=== PATIENT | female | born 1985 | race Caucasian/White ===

== ENCOUNTER 2019-01-08 15:53 | Inpatient (IN) ==
--- OUTSIDE RECORDS SUMMARY | 2019-01-08 15:56 | External Medical Summary | Continuity of Care Document ---
:1985 Author Name Linda Palma Address Unavailable Unavailable , Care Team Providers Name Role Phone Unavailable Unavailable Unavailable PCP, UNKNOWN Unavailable Unavailable Problems Active medical history not documented Allergies and Adverse Reactions Allergy history not documented Medications Medications not documented Procedures Procedures not documented Immunizations Immunizations not documented Plan of Treatment Planned Observations Planned Goals not documented Results No Known Results Results not documented
[2019-01-08] MEDS ORDERED: PENICILLIN G POTASSIUM 6 MU in DEXTROSE 5% 250 ML IV STA (16:07)
[2019-01-08] MEDS ORDERED: LACTATED RINGER'S 1,000 ML IV PRN ×2 (16:07→21:17)
[2019-01-08] MEDS ORDERED: OXYTOCIN 30 UNITS/500 ML BAG IV PRN ×3 (16:07→23:13)
[2019-01-08] MEDS ORDERED: PENICILLIN G POTASSIUM 3 MU in DEXTROSE 5% 100 ML IV PRN (16:07)
--- NOTE | 2019-01-08 16:14 | History & Physical Report ---
Date of Service January 08, 2019 Assessment & Plan (1) Uterine contractions at greater than 20 weeks of gestation: 33 yo at 40 wks, ctxs, cervical change GBS+ Declines pain management / epidural Plan admit, labs, PCN, IVF Anticipate History of Present Illness Chief Complaint: contractions Primary Care Provider: NO PCP Patient is a 33 yo at 40 wks, feeling ctxs since this morning, got closer and regular for the last 2 hours No OF/VB +FM Her cervix was 3/ 70%/ -3, yesterday in office Her has been complicated by 1) h/o TPTL, FFN+, s/p steroid series 2) GBS+ 3) Rh neg: s/p Rhogam Allergies Allergy/AdvReac Type Severity Reaction Status Date / Time No Known Allergies Allergy Verified 10/20/02 15:42 [id number] Allergy Unknown Uncoded 10/20/02 16:20 MSG Allergy Unknown Uncoded 10/20/02 16:20 N Allergy Unknown Uncoded 10/20/02 16:20 U Allergy Unknown Uncoded 10/20/02 16:20 Patient History Social History marital status: Feels Safe at Home: Yes Smoking Status: Never smoker Hx Alcohol Use: No Hx Substance Use: No OB History FT in 2016 [employer] History Denies any h/o STD's Review of Systems All systems reviewed & are unremarkable except as noted in HPI & below Physical Exam Constitutional: WD/WN, vitals as above well developed and well nourished Smiling Genitourinary: no vaginal lesions, no adnexal mass normal external appearance Cervix 5/ 80%/-2, tight bag Results & Data Vital Signs (Past 12 Hours) Vital Signs Pulse BP 01/08/19 16:00 70 113/64 Monitoring External Monitor 150's moderate varibilyt, 1 mild decel after 1 ctxs, accel+ Tocodynamometer ctxs q 8 min
[2019-01-08] MEDS: LACTATED RINGER'S 1,000 ML IV SCH ×2 (16:21→19:11)
[2019-01-08 16:36] LABS: Hematocrit (blood only) 37.4 % (37-47); Hemoglobin 12.9 g/dL (12.0-16.0); Mean Platelet Volume 10.9 fL (7.4-10.4); Platelet Count 213 K/uL (130-400); RDW Coefficient of Variation 12.6 % (11.5-14.5); RDW Standard Deviation 41.9 fL (36.4-46.3); Red Blood Count 4.11 M/uL (4.2-5.4); White Blood Count 6.66 K/uL (4.8-10.8)
[2019-01-08 17:08] LABS: Mean Corpuscular Hgb Conc 34.5 g/dL (32-36)
--- NOTE | 2019-01-08 21:22 | Obstetrical Progress Note ---
Date of Service January 08, 2019 Subjective Patient is reevaluated She has been waling, no ctxs in bed, feels when she walks She seems comfortable and smiling 2nd dose of PCN was given VE: 6/ 80%/ -2, recommended AROM, after long discussion and answered her questions, she agreed for AROM AROM'ed, no fluid came Bed side US is done: vertex, placenta anterior, FHR 140's, FM's seen, MARGARITO 5.5 cm FHR categ I, occasional variable decels, otherwise good accels and moderate variability [place]: 2-3 ctxs in 1 hour Protracted labor Recommended low dose pitocin, she has multiple questions, but agreed All questions were answered Results & Data Vital Signs (Past 12 Hours) Vital Signs Temp Pulse Resp BP 01/08/19 19:03 76 112/57 L 01/08/19 16:00 36.7 C 70 18 113/64
--- NOTE | 2019-01-08 21:40 | Obstetrical Progress Note ---
Date of Service January 08, 2019 Subjective Now she declined pitocin She likes await for her own ctxs to come FHR categ I Continue to monitor Results & Data Vital Signs (Past 12 Hours) Vital Signs Temp Pulse Resp BP 01/08/19 19:03 76 112/57 L 01/08/19 16:00 36.7 C 70 18 113/64
[2019-01-08] MEDS ORDERED: BENZOCAINE 20% AER SPR 82.5 GM CAN EXT PRN (23:13)
[2019-01-08] MEDS ORDERED: DIPHTHERIA/TETANUS/PERTUSSIS 0.5 ML SYR/VIAL IM ONE (23:13)
[2019-01-08] MEDS ORDERED: BISACODYL 10 MG SUPP PR PRN (23:13)
[2019-01-08] MEDS ORDERED: SUPERCREAM 0.870% 15 GM JAR EXT PRN (23:13)
[2019-01-08] MEDS ORDERED: HYDROCORTISONE ACETATE 25 MG SUPP PR PRN (23:13)
[2019-01-08] MEDS ORDERED: IBUPROFEN 600 MG TAB PO ONE (23:20)
--- NOTE | 2019-01-09 01:45 | Delivery Summary ---
DATE OF OPERATION: 01/08/2019 DATE OF DELIVERY: 01/08/2019 TIME OF DELIVERY: 2258 p.m. TIME OF DELIVERY OF PLACENTA: 23:05 p.m. DETAILS OF DELIVERY: The patient was found to be fully dilated and desired to push. She pushed through 3 contractions and delivered the head without difficulty. Shoulders were delivered with minimal traction. Baby was handed to the mother where mouth and nose were suctioned. Cord was clamped x2 and cut. It was a 3-vessel cord. Cord blood was obtained and then per patient request, cord blood was collected in its bag for saving. The placenta was found to be in the vagina, delivered spontaneous as intact and complete. Uterus was explored, found to be empty. Lower segment was cleared of all clots and debris. Fundus was firm. EBL was 100 mL. The vagina and perineum were checked for lacerations. There was a very small first degree periclitoral laceration which was not bleeding. After discussion with the patient, opted not to repair due to having no epidural and sensitive in the area. The rest of the vagina and perineum were intact. Mom and baby tolerated the procedure well. Sponge, lap, needle count was correct x2. Baby was a viable male infant, Apgars 8/9, weight is 3618 gr. No complications happened and I was present during whole procedure. I attest to the content of the Intraoperative Record and any orders documented therein. Any exceptions are noted below. MTDD
[2019-01-09] MEDS: ACETAMINOPHEN 325 MG TAB PO PRN ×3 (02:31→15:42)
[2019-01-09] MEDS: IBUPROFEN 600 MG TAB PO PRN ×5 (03:24→23:02)
[2019-01-09 06:20] LABS: Hematocrit (blood only) 35.1 % (37-47); Hemoglobin 12.1 g/dL (12.0-16.0); Mean Corpuscular Hgb Conc 34.5 g/dL (32-36); Mean Corpuscular Volume 90.9 fL (80-100); Mean Platelet Volume 10.9 fL (7.4-10.4); Platelet Count 188 K/uL (130-400); RDW Coefficient of Variation 12.6 % (11.5-14.5); RDW Standard Deviation 41.9 fL (36.4-46.3); Red Blood Count 3.86 M/uL (4.2-5.4); White Blood Count 11.63 K/uL (4.8-10.8)
--- NOTE | 2019-01-09 08:43 | Obstetrical Progress Note ---
Date of Service January 09, 2019 Subjective Patient is seen and examined. She feels well, no complaints. Ambulating without dizziness Voiding without difficulty Tolerating regular diet with out N&V Bleeding is minimal No fever/ chills/ CP/ SOB/ N&V/ Leg pain breast feeding without problems Vital Signs Temp Pulse Pulse Resp BP BP Pulse Ox 01/09/19 03:10 36.9 C 76 18 98/61 L 98 01/09/19 01:25 36.8 C 91 H 18 114/70 95 01/09/19 01:10 36.6 C 82 18 119/57 L 01/09/19 00:55 75 116/59 L 01/09/19 00:42 75 18 139/56 L 01/09/19 00:25 69 118/58 L 01/09/19 00:10 79 18 122/60 01/08/19 23:58 78 18 129/74 01/08/19 23:40 82 16 110/59 L 01/08/19 23:25 85 119/55 L 01/08/19 23:10 36.8 C 78 16 117/61 01/08/19 22:24 65 98/57 L 01/08/19 21:20 36.8 C 18 01/09/19 01/08/19 Range/Units 05:59 16:17 WBC 11.63 H 6.66 (4.8-10.8) K/uL RBC 3.86 L 4.11 L (4.2-5.4) M/uL Hgb 12.1 12.9 (12.0-16.0) g/dL Hct 35.1 L 37.4 (37-47) % MCV 90.9 91.0 (80-100) fL MCH 31.3 31.4 (25-34) pg MCHC 34.5 34.5 (32-36) g/dL RDW Std Deviation 41.9 41.9 (36.4-46.3) fL RDW Coeff of Guilherme 12.6 12.6 (11.5-14.5) % Plt Count 188 213 (130-400) K/uL MPV 10.9 H 10.9 H (7.4-10.4) fL PE: General: Alert, orientedx3, NAD Abd: soft, NT, fundus firm, below Umbilicus Perineum intact, Lochia rubra minimal Ext; NT, no edema AP: 33 yo s/p , ppd# 1 VSS Afebrile doing well Continue routine care All questions were answered D/C home tomorrow Results & Data Vital Signs (Past 12 Hours) Vital Signs Temp Pulse Pulse Resp BP BP Pulse Ox 01/09/19 03:10 36.9 C 76 18 98/61 L 98 01/09/19 01:25 36.8 C 91 H 18 114/70 95 01/09/19 01:10 36.6 C 82 18 119/57 L 01/09/19 00:55 75 116/59 L 01/09/19 00:42 75 18 139/56 L 01/09/19 00:25 69 118/58 L 01/09/19 00:10 79 18 122/60 01/08/19 23:58 78 18 129/74 01/08/19 23:40 82 16 110/59 L 01/08/19 23:25 85 119/55 L 01/08/19 23:10 36.8 C 78 16 117/61 01/08/19 22:24 65 98/57 L 01/08/19 21:20 36.8 C 18
[2019-01-09] MEDS: PRENATAL VITAMIN 1 TAB PO SCH (09:22)
[2019-01-09] MEDS: DOCUSATE SODIUM 100 MG CAP PO SCH ×2 (09:23→19:56)
[2019-01-09] MEDS: FERROUS SULFATE 325 MG TAB PO SCH (09:23)
[2019-01-09] MEDS ORDERED: BISACODYL 5 MG TABEC PO SCH (20:00)
[2019-01-10] MEDS: IBUPROFEN 600 MG TAB PO PRN ×3 (03:22→19:26)
[2019-01-10 06:02] LABS: Hematocrit (blood only) 36.6 % (37-47); Hemoglobin 12.6 g/dL (12.0-16.0)
[2019-01-10] MEDS: FERROUS SULFATE 325 MG TAB PO SCH (07:48)
[2019-01-10] MEDS: DOCUSATE SODIUM 100 MG CAP PO SCH (07:48)
[2019-01-10] MEDS: PRENATAL VITAMIN 1 TAB PO SCH (07:48)
[2019-01-10] MEDS: ACETAMINOPHEN 325 MG TAB PO PRN (07:48)
--- NOTE | 2019-01-10 07:57 | Obstetrical Progress Note ---
Date of Service January 10, 2019 Subjective doing well out of bed passing gas tolerating diet well Physical Exam Constitutional: WD/WN, vitals as above comfortable abdomen soft fundus firm no edema neg Fan's tent d/c in AM
== END 2019-01-10 22:20 | disposition home or self-care (01) | DRG 807 ==
LOC: OPB 15:53 → 4S1 15:54 → 4S2 01-09 01:25

== ENCOUNTER 2022-04-26 05:13 | Inpatient (IN) ==
[2022-04-26] MEDS ORDERED: LACTATED RINGER'S 1,000 ML IV PRN (06:23)
[2022-04-26] MEDS ORDERED: OXYTOCIN 30 UNITS/500 ML BAG IV PRN ×3 (06:23→12:51)
[2022-04-26 06:58] LABS: Hematocrit (blood only) 36.6 % (34.1-44.9); Hemoglobin 12.2 g/dl (12.0-16.0); Mean Corpuscular Hemoglobin 30.7 pg (25.0-34.0); Mean Corpuscular Hgb Conc 33.3 g/dL (32.0-36.0); Mean Platelet Volume 10.9 fL (9.4-12.3); Platelet Count 222 K/uL (130-400); RDW Coefficient of Variation 12.8 % (11.5-14.5); RDW Standard Deviation 43.3 fL (36.4-46.3); Red Blood Count 3.98 M/uL (3.93-5.22)
[2022-04-26] MEDS ORDERED: BUTORPHANOL TARTRATE 1 MG/ML VIAL IV PRN (08:54)
--- NOTE | 2022-04-26 09:19 | History & Physical Report ---
Date of Service April 26, 2022 Assessment & Plan (1) Premature rupture of membranes: Plan: 36-year-old -0-0-2 at 38 weeks and 3 days of gestation presenting with spontaneous/premature rupture of membranes, not in labor, Vital signs stable afebrile, heart rate reassuring, GBS negative, Discussed recommendation of induction of labor with SROM at term, patient agrees with Pitocin, and continuous monitoring, see HPI All questions were answered. (2) Spontaneous rupture of amniotic membranes: Admission and Anticipated Discharge Date Admission Date: April 26, 2022 History of Present Illness Primary Care Provider: Angel Bradley MD Patient is a 36-year-old -0-0-2 at 38 weeks and 3 days of gestation who presented to labor and delivery this morning after spontaneous rupture of membranes at around 3 AM. She has been leaking clear fluid since then. Mild irregular contractions, they are not painful. No vaginal bleeding, no fever chills, no abdominal pain. Patient feels good movements. Her has been uncomplicated GBS negative She has been walking since she came and she feels more contractions when she ambulates. She was hoping expectant management with ambulation. Her cervix was 3 cm at admission when she was checked by her nurse. I checked her again and her cervix is same 3 cm dilated, 60% effaced, posterior, head is at -2 station. We discussed premature/spontaneous rupture of membranes and not being in active labor, prolonged labor with increased risk of intraamniotic infection which can affect her and the baby. Discussed induction of labor with low-dose Pitocin per protocol, patient has multiple questions about Pitocin and other options. We also discussed oral Cytotec. After long discussion patient decided to ambulate for half an hour and then come back and start Pitocin. she wants to stand and sit on the ball while on Pitocin and baby will be monitored. Allergies Allergy/AdvReac Type Severity Reaction Status Date / Time No Known Allergies Allergy Verified 07/20/20 22:44 Home Medications Medication Instructions Recorded Confirmed Type vit no.133-ferrous 1 tab PO DAILY 07/20/20 04/26/22 History fumarate 28 mg-folic acid 800 mcg tablet () Patient History Medical History Migraines Surgical History [place] teeth extracted Social History Smoking Status: Never smoker Hx Alcohol Use: No Hx Substance Use: No Preferred Language: Maldivian Communication Ability: Effective [employer] Required: No Beliefs That Will Affect Care: Anabaptism marital status: Current Living Situation: Spouse and Family Current Living Situation Comment: Spouse and 2 sons. Other Information That Helps Us Care for You: No Feels Safe at Home: Yes Safety Concerns: Feels Safe At This Time Assistive Devices: None OB History Full-term 's in 2019 and 2016 [employer] History History of genital herpes, chlamydia, gonorrhea Review of Systems as per Subjective / HPI Physical Exam Constitutional: WD/WN, vitals as above well developed, well nourished and comfortable (not in pain,) Genitourinary: normal external appearance OB Exam Abdomen: + vertex Manual OB Exam: + cervical dilation 3 cm, + cervical effacement 60%, + station - 2 and + amniotic fluid (Grossly leaking clear amniotic fluid) OB Exam Monitor Tracing: + external uterine monitor used and + category I Results & Data ([facility]) Vital Signs (Past 12 Hours) Vital Signs Temp Pulse Resp BP 04/26/22 09:00 79 101/58 L 04/26/22 07:49 36.7 C 04/26/22 07:50 73 103/60 04/26/22 05:31 18 04/26/22 05:31 36.8 C 18 04/26/22 05:33 72 108/60 04/26/22 05:28 36.8 C 18 Diagnostic Findings Lab Results 04/26/22 Range/Units 06:45 WBC 6.40 (4.8-10.8) K/ul RBC 3.98 (3.93-5.22) M/uL Hgb 12.2 (12.0-16.0) g/dl Hct 36.6 (34.1-44.9) % MCV 92.0 (80.0-100.0) fL MCH 30.7 (25.0-34.0) pg MCHC 33.3 (32.0-36.0) g/dL RDW Std Deviation 43.3 (36.4-46.3) fL RDW Coeff of Guilherme 12.8 (11.5-14.5) % Plt Count 222 (130-400) K/uL MPV 10.9 (9.4-12.3) fL Code Status & VTE Plan VTE Prophylaxis Plan VTE Prophylaxis will be ordered: No
[2022-04-26 12:09] LABS: Glucose Fasting 67 mg/dl (70-99); LDL Cholesterol Direct 73 mg/dl
[2022-04-26] MEDS ORDERED: bisacodyL 10 MG SUPP PR PRN (12:51)
[2022-04-26] MEDS ORDERED: HYDROCORTISONE ACETATE 25 MG SUPP PR PRN (12:51)
[2022-04-26] MEDS ORDERED: MEASLES, MUMPS & RUBELLA VIRUS VIAL SQ ONE (12:51)
[2022-04-26] MEDS ORDERED: DIPHTHERIA/TETANUS/PERTUSSIS 0.5 ML SYR/VIAL IM ONE (12:51)
[2022-04-26] MEDS ORDERED: BENZOCAINE 20% AER SPR 82.5 GM CAN EXT PRN (12:51)
[2022-04-26] MEDS ORDERED: ACETAMINOPHEN 325 MG TAB PO PRN (12:51)
--- NOTE | 2022-04-26 12:55 | Delivery Summary ---
Vaginal Delivery Summary Date of Service April 26, 2022 Vaginal Delivery Summary Patient was found to be fluid dilated and desired to push. Head was over the perineum and with the same push it was delivered without difficulty and the anterior shoulder was unable to be delivered by manual traction. Posterior/right hand was bulging on the perineum, it was delivered with the right arm and shoulder and then the other shoulder and the rest of the body was delivered without difficulty. Baby was handed off to the mother that her mouth and nose were suctioned. The cord was clamped times and cut at 1 minute delay. Per patient request cord blood was collected in a bag for cord blood collection kit. Then the placenta was found to be in the vagina, delivered spontaneously as intact and complete. The lower segment was cleared of all clots and debris's, fundus was firm and EBL was 150 mL. Vagina and perineum were intact, no lacerations were found. The baby was a viable female , Apgars 7/9, weight is pending. None complications happened and I was present during whole procedure. At the end of the procedure the sponge and instrument count was correct.
[2022-04-26] MEDS: IBUPROFEN 600 MG TAB PO PRN ×2 (14:38→20:05)
[2022-04-26] MEDS: DOCUSATE SODIUM 100 MG CAP PO SCH (20:05)
[2022-04-27] MEDS: IBUPROFEN 600 MG TAB PO PRN ×3 (03:44→19:59)
[2022-04-27 06:45] LABS: Hematocrit (blood only) 36.4 % (34.1-44.9); Mean Corpuscular Hemoglobin 30.8 pg (25.0-34.0); Mean Corpuscular Volume 93.6 fL (80.0-100.0); Mean Platelet Volume 11.4 fL (9.4-12.3); Platelet Count 211 K/uL (130-400); RDW Coefficient of Variation 13.1 % (11.5-14.5); RDW Standard Deviation 44.6 fL (36.4-46.3); Red Blood Count 3.89 M/uL (3.93-5.22); White Blood Count 8.89 K/ul (4.8-10.8)
[2022-04-27] MEDS ORDERED: PRENATAL VITAMIN 1 TAB PO SCH (08:00)
[2022-04-27] MEDS ORDERED: FERROUS SULFATE 325 MG TAB PO SCH (08:00)
[2022-04-27] MEDS: DOCUSATE SODIUM 100 MG CAP PO SCH ×2 (08:37→21:23)
--- NOTE | 2022-04-27 09:42 | Obstetrical Progress Note ---
Date of Service April 27, 2022 Assessment & Plan Admission and Anticipated Discharge Date Admission Date: April 26, 2022 Subjective Patient is seen and examined. She feels well, no complaints. Ambulating without dizziness Voiding without difficulty Tolerating regular diet with out N&V Bleeding is minimal No fever/ chills/ CP/ SOB/ N&V/ Leg pain Breast feeding without problems Vital Signs Temp Pulse Resp BP Pulse Ox O2 Del Method 04/27/22 09:11 37.1 C 75 18 101/75 Room Air 04/27/22 03:35 36.6 C 62 16 91/48 L 96 Room Air 04/26/22 23:00 36.8 C 60 16 97/61 L 96 Room Air Lab Results 04/26/22 04/26/22 04/27/22 Range/Units 06:45 06:49 06:19 WBC 6.40 8.89 (4.8-10.8) K/ul RBC 3.98 3.89 L (3.93-5.22) M/uL Hgb 12.2 12.0 (12.0-16.0) g/dl Hct 36.6 36.4 (34.1-44.9) % MCV 92.0 93.6 (80.0-100.0) fL MCH 30.7 30.8 (25.0-34.0) pg MCHC 33.3 33.0 (32.0-36.0) g/dL RDW Std Deviation 43.3 44.6 (36.4-46.3) fL RDW Coeff of Guilherme 12.8 13.1 (11.5-14.5) % Plt Count 222 211 (130-400) K/uL MPV 10.9 11.4 (9.4-12.3) fL Fasting Glucose 67 L (70-99) mg/dl LDL Cholesterol Direct 73 mg/dl PE: General: Alert, orientedx3, NAD Abd: soft, NT, fundus firm, below Umbilicus Perineum intact, Lochia rubra minimal Ext; NT, no edema AP: 36 yo s/p , ppd# 1 VSS Afebrile doing well Desires d/c today Continue routine care All questions were answered D/C home , f/u in office Results & Data ([facility]) Vital Signs (Past 12 Hours) Vital Signs Temp Pulse Resp BP Pulse Ox O2 Del Method 04/27/22 09:11 37.1 C 75 18 101/75 Room Air 04/27/22 03:35 36.6 C 62 16 91/48 L 96 Room Air 04/26/22 23:00 36.8 C 60 16 97/61 L 96 Room Air
[2022-04-27] MEDS ORDERED: bisacodyL 5 MG TABEC PO SCH (20:00)
== END 2022-04-27 22:55 | disposition home or self-care (01) | DRG 807 ==
LOC: OPB 05:13 → 4S1 05:19 → 4E2 16:00